=== PATIENT | male | born 1995 ===

== ENCOUNTER 2017-01-29 15:17 | Day surgery (SDC) | payer OTHER ==
[2017-01-29] MEDS ORDERED: LIDOCAINE 1% 5 ML SDV ONE (15:29)
[2017-01-29] MEDS ORDERED: LIDOCAINE 1% 5 ML SDV ID PRN (16:02)
[2017-01-29] MEDS ORDERED: LR 1,000 ML IV ONE (16:02)
[2017-01-29] MEDS ORDERED: BUPIVACAINE 0.5% 30 ML SDV ONE (16:49)
[2017-01-29] MEDS ORDERED: PROPOFOL 200 MG/20 ML VIAL ONE (17:03)
[2017-01-29] MEDS ORDERED: fentaNYL 100 MCG/2 ML INJ ONE ×2 (17:03)
[2017-01-29] MEDS ORDERED: ROCURONIUM 50 MG/5 ML VIAL ONE (17:07)
[2017-01-29] MEDS ORDERED: DEXAMETHASONE 4 MG/ML VIAL ONE (17:07)
[2017-01-29] MEDS ORDERED: MIDAZOLAM 2 MG/2 ML VIAL ONE (17:11)
[2017-01-29] MEDS ORDERED: ONDANSETRON 4 MG/2 ML VIAL ONE (18:06)
[2017-01-29] MEDS ORDERED: GLYCOPYRROLATE 0.2 MG/1 ML VIAL ONE (18:12)
[2017-01-29] MEDS ORDERED: NEOSTIGMINE METHYLSULFATE 5 MG/5 ML SYR ONE (18:12)
--- NOTE | 2017-01-29 21:24 | GOP ---
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 ANESTHESIA: General endotracheal anesthesia was used. ANESTHESIOLOGIST: Dr. Genao. PREOPERATIVE DIAGNOSIS: Recurrent pilonidal cyst disease with abscess for definitive treatment. POSTOPERATIVE DIAGNOSIS: Recurrent pilonidal cyst disease with abscess for definitive treatment. PROCEDURE PERFORMED: Pilonidal cystectomy with cleft lift reconstruction. FINDINGS: SPECIMENS: Pilonidal cyst to permanent pathology. ESTIMATED BLOOD LOSS: Less than 25. INDICATIONS: This is a 21-year-old gentleman who presents with recurrent pilonidal cyst disease wit h abscess for definitive treatment. DESCRIPTION OF PROCEDURE: The patient was brought to the operating room. After induction of endotr acheal anesthesia, in supine position, the patient was placed in the prone rowan-knife position and p repared for surgery. A time-out procedure was performed according to institutional standards. Loca l anesthetic was then infused in the skin and subcutaneous tissues of the gluteal cleft. An incisio n was made close to the border of the cleft on the left side of the abscess, and a flap was created to accommodate closure. The cyst was then excised down to the coccygeal fibers. The right-side of the incision has a thicker flap created to remove the cyst in total. The area was made hemostatic, irrigated until clear, and the cleft was then reapproximated on the right side of the midline. 2-0 Vicryl was used to reapproximate the deep tissues, 3-0 Vicryl was used to reapproximate the skin, an d interrupted nylon sutures were used to complete the closure at the skin level after placing a 15-F rench channel drain through the superior border of the wound. Needle, instrument, and sponge counts were verified to be correct x2. The patient was awakened, extubated, and taken to the recovery [facility] in stable condition. SURGEON: Karthik White MD. FLUIDS: The patient had 1 L of crystalloid. COMPLICATIONS: There were no complications. /[id number]/MODL
--- NOTE | 2017-02-16 10:29 | GPROG ---
[f rep st] PROGRESS NOTE POST-ANESTHETIC EVALUATION. The patient is in the PACU following repair of a pilonidal cyst under general anesthesia. His cardiovascular and respiratory status are stable. He is able to participate in his evaluation and he denies any pain at this time. There are no complaints of nausea or vomiting. There are no complications related to anesthesia noted at this time. /[id number]/MODL MTDD
== END 2017-01-29 19:45 | disposition home or self-care (01) ==
LOC: FSGY 15:17
PROVIDERS: ATTEND Surgery
PROC: 0HX8XZZ Transfer Buttock Skin, External Approach (ICD-10-PCS; principal; 2017-01-29 16:45)
PROC: 0JB90ZZ Excision of Buttock Subcutaneous Tissue and Fascia, Open Approach (ICD-10-PCS; principal; 2017-01-29 16:45)
DX: L05.91 Pilonidal cyst without abscess (principal)
CPT/HCPCS: J1100; J2250; J2405; J2704; J2710; J3010